=== PATIENT | female | born 2000 | race Caucasian/White ===

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

== ENCOUNTER → 2022-07-08 | Emergency (ER) | payer SELFPAY ==
[2022-07-08 04:56] VITALS: BP 96/65; RESP 22; TEMP 97.9; BMI 32.9
[2022-07-08 04:57] VITALS: PULSE 80
[2022-07-08 08:19] LABS: EPI CELLS 7 /uL (0-25.1); HYALINE CASTS 0 /uL (0-3.1); PH,URINE 5.5 (5.0-8.0); URINE APPEARANCE CLEAR; URINE BACTERIA 215 /uL (0-1359); URINE BILIRUBIN NEGATIVE (NEGATIVE); URINE COLOR YELLOW; URINE GLUCOSE (UA) NEGATIVE (NEGATIVE); URINE KETONE TRACE (NEGATIVE); URINE LEUK ESTERASE NEGATIVE (NEGATIVE); URINE NITRITE NEGATIVE (NEGATIVE); URINE PROTEIN NEGATIVE (NEGATIVE); URINE RBC 54 /uL (0-23.9); URINE UROBILINOGEN 0.2 mg/dL (0.2-1.0); URINE WBC 9 /uL (0-25.8)
[2022-07-08 08:20] LABS: HCG,QUALITATIVE URINE Negative
== END ==
LOC: JER 04:48
DX: R52 Pain, unspecified (principal)
CPT/HCPCS: 81003; 84703; 99282-25